=== PATIENT | male | born 1945 | race Caucasian/White ===

== ENCOUNTER 2017-08-16 10:33 | Emergency (ER) | payer OTHER ==
[2017-08-16 10:51] VITALS: BP 200/65; PULSE 82; RESP 18; TEMP 97.7; O2SAT 95
--- NOTE | 2017-08-16 10:56 | EDPHY ---
HPI/HX/ROS/PE/MDM Narrative: CHIEF COMPLAINT: Foot blister HPI: The patient is a 72-year-old male with a history of diabetes and prior diabetic foot ulcers. He is visiting from [place]. Yesterday he noted a small "blood blister" to the plantar aspect of his distal left foot, somewhat near the area of a previous diabetic foot ulcer. He peeled away some of the skin which resulted in some mild bleeding. He denies fever or pain to that area. He is here primarily because he is concerned that this may turn into a diabetic foot ulcer. REVIEW OF SYSTEMS: Aside from elements discussed in the HPI, a comprehensive 10-point review of systems was reviewed and is negative. PMH: Includes diabetes, history of diabetic foot ulcer SOCIAL HISTORY: Lives in [place]. Primary behavioral health counselor located [place]. Denies drug or alcohol abuse. . PHYSICAL EXAM: General:Patient is alert, in no acute distress. Extremities: Left foot: Normal to inspection with the exception of a 0.5 cm small superficial unroof the blister just distal to the ball of the foot. No surrounding erythema, no discharge, no tenderness. Neuro: Oriented x3. Normal motor function. Normal sensory function. MDM: This patient presents with a small blood blister that has popped on his foot. There is no evidence for superinfection and no evidence that this represents a deeper tissue. I advised the patient on wound care and agree to prescribe him a prescription for antibiotic should this worsen given that he is traveling and does not have easy access to medical care. He is comfortable with this plan. We discussed strict return precautions. General Time Seen by Provider: 08/16/17 10:36 Initial Vital Signs: Initial Vital Signs Temperature (C) 36.5 C 08/16/17 10:45 Heart Rate 82 08/16/17 10:45 Respiratory Rate 18 08/16/17 10:45 Blood Pressure 200/65 H 08/16/17 10:45 O2 Sat (%) 95 08/16/17 10:45 O2 Delivery Mode Room Air Allergies/Adverse Reactions: No Known Allergies Allergy (Unverified 08/16/17 10:45) Home Medications: Medication Instructions Recorded Aspirin 08/16/17 Cephalexin [Keflex] 500 mg PO Q6H #28 cap 08/16/17 Coenzyme Q-10 08/16/17 Crestor 08/16/17 Doxazosin Mesylate 08/16/17 Finasteride 08/16/17 Levemir 08/16/17 Lisinopril 08/16/17 Metformin HCl 08/16/17 Metoprolol Succinate 08/16/17 novoLOG 08/16/17 Departure - Departure Disposition: Home, Routine, Self-Care Clinical Impression: Blister of foot, left Condition: Good Instructions: Blister (ED) Additional Instructions: Keep wound bandaged during day, air out at night. Ok to shower normally etc. Take antibiotics only if wound reddens, pus drainage or fever. Follow-up with your behavioral health counselor when you get home. Have a safe trip! Referrals: Doctor Not,On Staff, MD [Primary Care Provider] - As per Instructions Prescriptions: Cephalexin [Keflex] 500 mg PO Q6H #28 cap
== END 2017-08-16 11:03 | disposition home or self-care (01) ==
LOC: CED 10:33
DX: R23.8 Other skin changes (principal); E11.9 Type 2 diabetes mellitus without complications; Z79.4 Long term (current) use of insulin; Z79.82 Long term (current) use of aspirin; Z79.84 Long term (current) use of oral hypoglycemic drugs